=== PATIENT | female | born 1950 | race Caucasian/White ===

== ENCOUNTER 2023-03-24 16:26 | Emergency (ER) | payer MEDICARE ==
[2023-03-24] MEDS ORDERED: KETOROLAC 15 MG/ML 1 ML VIAL IM STA (16:53)
[2023-03-24] MEDS ORDERED: LIDOCAINE 5% PATCH TOPICAL SCH (17:00)
--- NOTE | 2023-03-24 17:00 | ED ---
Back Pain HPI - General Chief Complaint: Back Pain/Injury Stated Complaint: back pain Time Seen by Provider: 03/24/23 16:43 Source: patient, RN notes reviewed, old records reviewed Limitations: no limitations - History of Present Illness Initial Comments: This is a nontoxic-appearing 72-year-old female that presents with mid to low back pain after trying to open a window last night around 8 PM. Patient states that she felt cracks down her spine and sudden onset of pain. She was able to get to bed and sleep, woke up this morning with relief and states went shopping. While shopping pain increased. Has been able to ambulate and did drive herself to the hospital. She denies any bowel or bladder incontinence. Denies any previous fractures. She states she does have osteopenia. History of diabetes and hypertension. Patient here visiting from [place]. Complaint: back pain -: hour(s) (21) Similar Symptoms Previously: No Place: home Radiation: none Severity scale (1-10): 7 Consistency: constant Improves With: other (bending or palpation of spine) Associated Symptoms: denies other symptoms - Related Data Previous Rx's Medication Instructions Recorded Lidocaine 5% Patch [Lidoderm] 1 patch TOPICAL DAILY PRN #14 patch 03/24/23 Allergies Allergy/AdvReac Type Severity Reaction Status Date / Time No Known Allergies Allergy Verified 03/24/23 16:39 Review of Systems ROS Statement: Those systems with pertinent positive or pertinent negative responses have been documented in the HPI. ROS Other: All systems not noted in ROS Statement are negative. Past Medical History Past Medical History: Diabetes Mellitus, Hypertension History of Any Multi-Drug Resistant Organisms: None Reported Past Surgical History: Hysterectomy Past Psychological History: No Psychological Hx Reported Smoking Status: Former smoker Past Alcohol Use History: Rare Past Drug Use History: None Reported General Exam Limitations: no limitations General appearance: alert, in no apparent distress Head exam: Present: atraumatic, normocephalic Eye exam: Present: normal appearance. Absent: scleral icterus, conjunctival injection, periorbital swelling ENT exam: Present: normal oropharynx, mucous membranes moist Neck exam: Present: normal inspection, full ROM. Absent: tenderness, meningismus Respiratory exam: Absent: respiratory distress, accessory muscle use Cardiovascular Exam: Present: regular rate GI/Abdominal exam: Present: soft Extremities exam: Present: full ROM, normal capillary refill. Absent: tenderness, pedal edema, joint swelling, calf tenderness Back exam: Present: full ROM, tenderness (thoracic and lumbar spine), vertebral tenderness (thoracic and lumbar). Absent: CVA tenderness (R), CVA tenderness (L), paraspinal tenderness, rash noted Expanded Back exam: Absent: saddle anesthesia Back exam: Negative Straight Leg Raising: Left, Right Neurological exam: Present: alert, oriented X3, CN II-XII intact, normal gait Psychiatric exam: Present: normal affect, normal mood Skin exam: Present: warm, dry, normal color. Absent: cyanosis, diaphoretic, petechiae, pallor Course Vital Signs 03/24/23 03/24/23 16:37 18:30 Temperature 98.6 F 98.1 F Pulse Rate 80 77 Respiratory 18 16 Rate Blood Pressure 149/69 135/76 O2 Sat by Pulse 95 96 Oximetry Medical Decision Making - Medical Decision Making Was pt. sent in by a medical professional or institution (, PA, PRODUCTION ADMINISTRATOR, urgent care, hospital, or care home...) When possible be specific @ -No Did you speak to anyone other than the patient for history (EMS, parent, family, police, friend...)? What history was obtained from this source @ -No Did you review nursing and triage notes (agree or disagree)? Why? @ -I reviewed and agree with nursing and triage notes Were old charts reviewed (outside hosp., previous admission, EMS record, old EKG, old radiological studies, urgent care reports/EKG's, care home records)? Report findings @ -No old charts were reviewed Differential Diagnosis (chest pain, altered mental status, abdominal pain women, abdominal pain men, vaginal bleeding, weakness, fever, dyspnea, syncope, headache, dizziness, GI bleed, back pain, seizure, CVA, palpatations, mental health, musculoskeletal)? @ -Differential Back Pain: Strain, zoster, cauda equina syndrome, epidural abscess, vertebral osteomyelitis, discitis, fracture, subluxation, disc herniation, DJD, spinal stenosis, dissection, AAA, pancreatitis, peptic ulcer disease, pyelonephritis, kidney stone, this is not meant to be an all-inclusive list. EKG interpreted by me (3pts min.). @ -n/a X-rays interpreted by me (1pt min.). @ -yes X-ray of the thoracic lumbar spine interpreted by me shows no evidence of fracture. CT interpreted by me (1pt min.). @ -None done U/S interpreted by me (1pt. min.). @ -None done What testing was considered but not performed or refused? (CT, X-rays, U/S, labs)? Why? @ -None What meds were considered but not given or refused? Why? @ -None Did you discuss the management of the patient with other professionals (professionals i.e. , PA, PRODUCTION ADMINISTRATOR, lab, RT, psych nurse, family welfare social work professor, assembler dielectric heater, teacher, court officer, case work aide)? Give summary @ -No Was smoking cessation discussed for >3mins.? @ -No Was critical care preformed (if so, how long)? @ -No Were there social determinants of health that impacted care today? How? (Homelessness, low income, unemployed, alcoholism, drug addiction, transportation, low edu. Level, literacy, decrease access to med. care, fpc, rehab)? @ -No Was there de-escalation of care discussed even if they declined (Discuss DNR or withdrawal of care, Hospice)? DNR status @ -No What co-morbidities impacted this encounter? (DM, HTN, Smoking, COPD, CAD, Cancer, CVA, ARF, Chemo, Hep., AIDS, mental health diagnosis, sleep apnea, morbid obesity)? @ -History of osteopenia, diabetes and hypertension. Was patient admitted / discharged? Hospital course, mention meds given and route, prescriptions, significant lab abnormalities, going to OR and other pertinent info. @ -Discharged 72-year-old female presents ambulatory with mid to low back pain after trying to open a window last night around 8 PM. Patient states that she felt cracks down her spine and sudden onset of pain. She was able to get to bed and sleep, woke up this morning with relief and states went shopping. While shopping pain returned. Has been able to ambulate and did drive herself to the hospital. She denies any bowel or bladder incontinence. Denies any previous fractures. Patient was given Lidoderm patch and Toradol for pain with improvement. Flonase for nasal congestion. Denies any fevers. Directed not to use [id number] nasal decongestants which may elevate her blood pressure. Radiologist interpretation x-ray of thoracic spine and lumbar spine show no acute osseous pathology. Mild degeneration changes of the spine. Grade 1 anterolisthesis L4 and L5. Physical exam patient is a mandatory with a steady gait but range of motion. No rashes. No bowel or bladder incontinence. No history of cancer. No other red flag symptoms. Patient directed to follow up with her primary care doctor. She was given prescriptions for Lidoderm patches and directed to continue Tylenol and Motrin at home. She is agreeable to this plan of care. Case discussed with Dr. Levy Undiagnosed new problem with uncertain prognosis? @ -No] Drug Therapy requiring intensive monitoring for toxicity (Heparin, Nitro, Insulin, Cardizem)? @ -No Were any procedures done? @ -No Diagnosis/symptom? @ -Acute back pain, anterolisthesis lumbar spine, nasal congestion Acute, or Chronic, or Acute on Chronic? @ -Acute Uncomplicated (without systemic symptoms) or Complicated (systemic symptoms)? @ -Uncomplicated Side effects of treatment? @ -No Exacerbation, Progression, or Severe Exacerbation? @ -No Poses a threat to life or bodily function? How? (Chest pain, [place], [place], pneumonia, PE, COPD, DKA, ARF, appy, cholecystitis, CVA, Diverticulitis, Homicidal, Suicidal, threat to staff... and all critical care pts) @ -No Disposition Clinical Impression: Acute back pain, Anterolisthesis of lumbar spine, Nasal congestion Disposition: HOME SELF-CARE Condition: Good Instructions (If sedation given, give patient instructions): Acute Low Back Pain (ED) Additional Instructions: Use topical Lidoderm patches as prescribed or [id number] topical pain relievers like BenGay, icy hot or Biofreeze. You can also take Tylenol and Motrin as needed for pain or discomfort. Return to the emergency room with any new or concerning symptoms. Follow-up with the primary care doctor as needed. Prescriptions: Lidocaine 5% Patch [Lidoderm] 1 patch TOPICAL DAILY PRN #14 patch PRN Reason: pain Is patient prescribed a controlled substance at d/c from ED?: No Referrals: None,Stated [Primary Care Provider] - 1-2 days Time of Disposition: 17:56
[2023-03-24] MEDS ORDERED: FLUTICASONE 50MCG/SPRAY NASAL 16GM EA NOSTRIL PRN (17:05)
--- NOTE | 2023-03-24 17:35 | XR ---
EXAMINATION TYPE: XR thoracic spine complete, XR lumbar spine with bend/flex DATE OF EXAM: 03/24/2023 5:24 PM INDICATION: Patient age:Female; 72 years old; Reason for study: pain; COMPARISON: None TECHNIQUE: 2 views of the thoracic spine in Frontal and lateral projections. Frontal lateral, extension, flexion views of the lumbar spine. FINDINGS: Mild scoliosis changes dextroscoliosis thoracic spine and levo scoliosis lumbar spine. Mult ilevel degeneration with mild disc space narrowing osteophyte formation and facet joint arthropathy. No evidence of acute fracture.. 1 anterolisthesis of L4 and L5. No evidence for significant spinal ca nal neural foraminal stenosis. There is atherosclerosis of the arterial vasculature. IMPRESSION: 1. No acute osseous pathology. 2. Mild degeneration changes of the spine. 3. Grade 1 anterolisthesis L4 and L5.
[2023-03-24 18:31] VITALS: BP 135/76; PULSE 77; RESP 16; TEMP 98.1
== END 2023-03-24 18:31 | disposition home or self-care (01) ==
LOC: EC 16:26
DX: M43.16 Spondylolisthesis, lumbar region (principal); R09.81 Nasal congestion; E11.9 Type 2 diabetes mellitus without complications; I10 Essential (primary) hypertension; Z87.891 Personal history of nicotine dependence
CPT/HCPCS: 72072; 72114; 99283; 96372; J1885